=== PATIENT | female | born 1965 | race Two or more races ===

== ENCOUNTER 2018-04-24 06:18 | Day surgery (SDC) | payer OTHER ==
[~2018-04-24 06:18] MED LIST: ALBUTEROL0.63 MG/3; ATROVENT HFA12.9 GM; CLONAZEPAM0.5 MG PO; FIORINAL-COD 31 EACH PO; FLEXERIL PO; NAPROXEN375 MG PO; PERCOCET 10-321 EACH PO; PRISTIQ25 MG PO; PROVENTIL HFA6.7 GM; SIMVASTATIN20 MG PO; TRAMADOL HCL50 MG PO
== END 2018-04-24 12:45 | disposition home or self-care (01) ==
LOC: CIR.AMB 06:18
DX: M75.121 Complete rotator cuff tear or rupture of right shoulder, not specified as traumatic (principal); M19.011 Primary osteoarthritis, right shoulder; M24.111 Other articular cartilage disorders, right shoulder; M75.21 Bicipital tendinitis, right shoulder

== ENCOUNTER 2020-06-07 18:50 | Emergency (ER) | payer OTHER ==
[~2020-06-07] VITALS: Ht 149.9 cm; Wt 66.7 kg
== END 2020-06-07 21:04 | disposition home or self-care (01) ==
LOC: ER 18:50
DX: G43.809 Other migraine, not intractable, without status migrainosus (principal)

== ENCOUNTER 2021-03-04 10:35 | Emergency (ER) | payer OTHER ==
[~2021-03-04] VITALS: Ht 149.9 cm; Wt 65.8 kg
[2021-03-04] MEDS ORDERED: KETOROLAC30 MG/1 M2 (11:08)
[2021-03-04] MEDS ORDERED: NP THYROID60 MG PO (11:09)
[2021-03-04] MEDS ORDERED: RESTORIL30 MG PO (11:09)
[2021-03-04] MEDS ORDERED: RIZATRIPTAN10 M1 PO (11:09)
== END 2021-03-04 16:25 | disposition home or self-care (01) ==
LOC: ER 10:35
DX: G43.809 Other migraine, not intractable, without status migrainosus (principal)

== ENCOUNTER 2021-05-01 12:27 | Emergency (ER) | payer OTHER ==
[~2021-05-01] VITALS: Ht 149.9 cm; Wt 64.9 kg
[~2021-05-01 12:27] MED LIST changes: +KETOROLAC30 MG/1 M2; +NP THYROID60 MG PO; +RESTORIL30 MG PO; +RIZATRIPTAN10 M1 PO
[2021-05-01] MEDS ORDERED: DICLOFENAC SODI75 MG PO (15:20)
== END 2021-05-01 15:26 | disposition home or self-care (01) ==
LOC: ER 12:27
DX: M54.5 Low back pain (principal)

== ENCOUNTER 2022-11-29 13:08 | Emergency (ER) | payer OTHER ==
[~2022-11-29] VITALS: Ht 149.9 cm; Wt 60.8 kg
[~2022-11-29 13:08] MED LIST changes: +DICLOFENAC SODI75 MG PO
== END 2022-11-29 16:54 | disposition home or self-care (01) ==
LOC: ER 13:08
DX: F41.9 Anxiety disorder, unspecified (principal); G43.909 Migraine, unspecified, not intractable, without status migrainosus

== ENCOUNTER 2024-06-06 18:33 | Emergency (ER) | payer OTHER ==
[~2024-06-06] VITALS: Ht 149.9 cm; Wt 62.6 kg
[2024-06-06] MEDS ORDERED: LEVOTHYROXINE25 MC1 PO (18:58)
[2024-06-06] MEDS ORDERED: GUAIFENESIN/DEXTROMETHORPHAN 10ML BLIST.PACK PO STA (20:07)
[2024-06-06] MEDS ORDERED: METHYLPREDNISOLONE SOD SUCC 125 MG VIAL IV STA (20:07)
[2024-06-06] MEDS ORDERED: METHYLPREDNISOLONE SOD SUCC 125 MG VIAL ONE (20:13)
[2024-06-06] MEDS ORDERED: GUAIFENESIN/DEXTROMETHORPHAN 10ML BLIST.PACK PO ONE (20:13)
[2024-06-06] MEDS ORDERED: IPRATROPIUM BROMIDE 0.5 MG/2.5 ML AMPUL.NEB IH SCH (20:15)
[2024-06-06] MEDS ORDERED: ALBUTEROL SULFATE 3 ML/2.5 MG AMPUL.NEB IH SCH (20:15)
[2024-06-06 20:45] LABS: HEMATOCRIT 41.6 % (36.0-45.00); HEMOGLOBIN 13.7 g/dL (12.0-15.00); MEAN CELL VOLUME 87.5 fL (80.00-100.00); MEAN CORPUSCULAR HEMOGLOBIN 28.9 pg (27.00-32.0); PLATELET COUNT 347 K/uL (150-450); RED BLOOD COUNT 4.75 M/uL (4.00-6.00); RED CELL DISTRIBUTION WIDTH 15.1 % (11.5-14.5)
[2024-06-06 21:04] LABS: ALBUMIN 4.2 gm/dL (3.4-5.0); BILIRUBIN TOTAL 0.67 mg/dL (0.3-1.2); CALCIUM 9.5 mg/dL (8.5-10.1); CREATININE SERUM 0.74 mg/dL (0.55-1.02); GFR 80.05; GLOBULINA 3.4 G/DL (2.4-3.5); POTASSIUM 5.16 mEq/L (3.5-5.1); TOTAL PROTEIN 7.6 gm/dL (6.4-8.2)
[2024-06-06] MEDS ORDERED: IPRATROPIUM BROMIDE 0.5 MG/2.5 ML AMPUL.NEB IH ONE (21:06)
[2024-06-06] MEDS ORDERED: ALBUTEROL SULFATE 3 ML/2.5 MG AMPUL.NEB IH ONE (21:06)
[2024-06-06] MEDS ORDERED: ZYRTEC10 MG PO (22:57)
[2024-06-06] MEDS ORDERED: IPRATROPIU0.2 MG/1 M IH (22:57)
[2024-06-06] MEDS ORDERED: SINGULAIR10 MG PO (22:57)
[2024-06-06] MEDS ORDERED: BENZONATATE200 M1 PO (22:57)
[2024-06-06] MEDS ORDERED: LEVOFLOXACIN750 MG PO (22:57)
== END 2024-06-06 23:00 | disposition home or self-care (01) ==
LOC: ER 18:35
PROVIDERS: General Practice
DX: J45.901 Unspecified asthma with (acute) exacerbation (principal); Z20.822 Contact with and (suspected) exposure to COVID-19; E03.8 Other specified hypothyroidism
CPT/HCPCS: 36415; 71046; 94640; 96365; 99283; J3490